=== PATIENT | male | born 1990 | race African-American/Black ===

== ENCOUNTER 2025-07-15 09:00 | Emergency (ER) | payer OTHER, SELFPAY ==
--- OUTSIDE RECORDS SUMMARY | 2018-03-25 19:00 | XMS_ITS | Continuity of Care Document ---
Author Organization [facility] Address [address] [place] [address] Phone Care Team Providers Care Plane Captain Name Role Phone Russ MOSER Rebekah Saravia Unavailable Unavailab le Allergies, Adverse Reactions, Alerts Substance Reaction Status Criticality No Known allergies Medications Medication Instructions Dosage Effective Dates (start - stop) Status Comments Topiramate 1 tablet qhs Once a day for 30 day(s) - No Longer Active Metronidazole 4 tablet x 1 for 1 days - No Longer Active Clindamycin Phosphate 1 application to affected area Twice a day for 30 day(s) No Longer Active Amitriptyline HCl 1 tablet Once a day for 30 day(s) No Longer Active Azithromycin 2 tablets as directed x 1 for 1 days - No Longer Active Macrobid 1 capsule with food every 12 hrs for 7 day(s) No Longer Active Ibuprofen 1 tablet with food or milk as needed Three times a day for 30 day(s) No Longer Active Amitriptyline HCl 1 tablet Once a day for 30 day(s) - No Longer Active Topiramate 1 tablet qhs Once a day for 30 day(s) No Longer Active Ibuprofen 1 tablet with food or milk as needed Three times a day for 30 day(s) - No Longer Active Clindamycin Phosphate 1 application to affected area Twice a day for 30 day(s) - No Longer Active Amitriptyline HCl 1 tablet Once a day for 30 day(s) - No Longer Active Topiramate 1 tablet qhs Once a day for 30 day(s) - No Longer Active Advance Directives Directive Yes / No Effective Date File Name No Information Encounters Encounter Description Practice Location Reason(s) For Visit Diagnoses Date Provider Providers Copied on Encounter [facility], [address] [place] [address], [id number], tel:[phone] [facility] No Information Feb-2 8201 8 Russ MOSER Rebekah Saravia. [address] [place] [address], [id number], . tel:[phone] [facility], [address] [place] [address], [id number], [place] tel:[phone] [facility] Axillary hidradenitis suppurativaPolyp of gallbladder Feb-0 7 8 No Information [facility], [address] [place] [address], [id number], tel:[phone] [facility] No Information 0 5201 8 Mostafania REDD Martell. [address] [place] [address], [id number], [place]. [facility], [address] [place] [address], [id number], tel:[phone] [facility] MDD (major depressive disorder), recurrent episode, moderate Apr-2 3-201 8 Lior العراقي. [address] [place] [address], [id number]. tel:[phone] [facility], [address] [place] [address], [id number], tel:[phone] [facility] SeizureMarijuana useOther chronic painEpigastric painScreeningNaus ea and vomitingUnspecifi ed abdominal pain Apr-0 201 8 No Information [facility], [address] [place], [place], [id number], [place] tel:[phone] [facility] Post traumatic stress disorder (PTSD) 8 iLor العراقي. [address] [place] [address], [id number]. tel:[phone] [facility], [address] [place], [place], [id number], [place] tel:[phone] [facility] Chronic migraine 8 Roscoe Kurtz. [address] [place] [address], [id number], [place]. Family History Family Member Type Diagnosis Age At Onset Father Problem (finding) Alive and well Mother Problem (finding) Alive and well Payers Payer name Insurance type Covered republican ID Authoriza tion(s) No Information Social History Type Description Quantity Date Captured Comments Sex Male Smoking Status No Information Chief Complaint And Reason For Visit No Information Reason For Referral Reason For Referral No Information History Of Present Illness Encounter Date Complaint History Of Prese nt Illness No Information Functional Status Date Functional Assessmen t No Information Instructions Date Instruction Additional Infor mation No Information Assessments Type Assessment Date No Information Patient Care Teams Name Effective Dates (start - stop) Status Members No Information
--- OUTSIDE RECORDS SUMMARY | 2018-04-14 12:31 | XMS_ITS | Continuity of Care Document ---
Author Organization [facility] Address [address] [place] [address] Phone Care Team Providers Care Master Machinist Name Role Phone Hospitalist, [facility] Unavailable Unavailable Advance Directives Directive Yes / No Effective Date File Name No Information Encounters Encounter Description Practice Location Reason(s) For Visit Diagnoses Date Provider Providers Copied on Encounter [facility], [address], [place], [place], [id number], [place] tel:[phone] [facility] Care Management No Information 8 [facility] [address] [place], [address], [place]. tel:[phone] Family History Family Member Type Diagnosis Age At Onset No Information Payers Payer name Insurance type Covered republican [...]
[2025-07-15] VITALS (20 sets, daily range): BP systolic 90–126; BP diastolic 59–80; PULSE 69–71; RESP 18; TEMP 36.9; O2SAT 98–100
--- NOTE | ~2025-07-15 | CT_ITS ---
EXAMINATION: CT cervical spine wo con COMPARISON: None HISTORY: fall TECHNIQUE: Axial images were obtained through the spine without IV contrast. Coronal, sagittal reconstruction images were obtained from the axial views. CT scan performed using dose optimization techniques including the following automated exposure control; adjustment of mA and/or kV; use of iterative reconstruction technique. Automatic exposure control was used to reduce radiation dose. Permanent radiation dose record is archived to PACS. FINDINGS: The vertebral heights are intact. No fracture or subluxation. The disc heights are intact. Soft tissues unremarkable. Impression: No acute abnormality. Reviewed, dictated and finalized at location P. Impression: No acute abnormality.
--- NOTE | ~2025-07-15 | CT_ITS ---
EXAMINATION: CT brain wo con DATE: 07/15/2025 10:38 INDICATION: Syncope. TECHNIQUE: Computed tomography (CT) of the head was performed without intravenous contrast. The mA was adjusted according to patient size. Iterative reconstruction technique was employed. The dose-length product was 681.00 mGy-cm. COMPARISON: None FINDINGS: There is no intracranial hemorrhage, acute infarction, or abnormal intracranial mass lesion. The ventricles are normal in size. The orbits are normal. There is mild mucosal thickening in the paranasal sinuses. The mastoid air cells are normal. IMPRESSION: 1. Normal brain. Reviewed, dictated and finalized at location E. IMPRESSION: 1. Normal brain.
--- NOTE | ~2025-07-15 | CT_ITS ---
EXAMINATION: CT thoracic spine wo con DATE: 07/15/2025 10:41 INDICATION: Fall. TECHNIQUE: Computed tomography (CT) of the thoracic spine was performed without intravenous contrast. Automated exposure control and iterative reconstruction technique were employed. The dose-length product was 490.35 mGy-cm. COMPARISON: None FINDINGS: There is 15 degrees levoscoliosis of upper thoracic spine. There is mild chronic anterior wedging of T3-T8 vertebral bodies. There are Schmorl's nodes at multiple levels. There is decreased disc height at many levels, severe at T3-T4, moderate at T4-T5, and severe at T5-T6, T6-T7, and T7-T8. There is multilevel facet joint osteoarthritis, severe on the left at T3-T4. There is mild left neural foraminal stenosis at T3-T4. There is mild central canal stenosis at T8-T9. IMPRESSION: 1. No fracture. 2. Severe thoracic spondylosis. 3. Thoracic levoscoliosis. Reviewed, dictated and finalized at location E.
--- NOTE | ~2025-07-15 | XR_ITS ---
EXAMINATION: XR chest 1V, 07/15/2025 10:40 CDT HISTORY: fall COMPARISON: No comparisons available. Technique: Single view. Findings: The lungs are clear, no effusion. No pneumothorax. Heart is normal size. Mediastinal and hilar contours are within normal limits. Bony thorax no acute abnormality. Impression: No acute cardiopulmonary abnormality. Reviewed, dictated and finalized at location P. Impression: No acute cardiopulmonary abnormality.
--- NOTE | 2025-07-15 09:28 | PC.NURSE ---
patient recently added red meat and pork to his diet and is unsure if that could be contributing to symptoms
--- NOTE | 2025-07-15 10:15 | ECG_ITS ---
Test Date: 2025-07-15 11:03:32 Measurements Intervals [place] Rate: 70 P: 23 CO: 132 QRS: 48 QRSD: 98 T: 48 QT: 356 QTc: 385 Interpretive Statements SINUS RHYTHM PEAKED T WAVES- CONSIDER HYPERKALEMIA ABNORMAL ECG No previous ECG available for comparison Electronically Signed On 07-15-2025 11:11:50 CDT by Alejandro Edouard D.O.
[2025-07-15 10:35] LABS: Hematocrit 39.5 % (42.0-52.0); Hemoglobin 12.3 g/dL (14.0-18.0); Immature Granulocyte Percent A 0.2 % (0-0.5); Lymphocytes Absolute Auto 1.25 K/mm3 (0.9-3.2); Mean Corpuscular HGB Conc 31.1 g/dl (32-36); Mean Corpuscular Hemoglobin 28.0 pg (26-34); Mean Corpuscular Volume 89.8 fl (80-100); Nucleated Red Blood Cells Absolute Auto 0.000 K/mm3 (0.0-0.012); Nucleated Red Blood Cells Perc 0.0 % (0.0-0.2); Platelet Count Result 224 k/mm3 (150-375); Red Blood Count 4.40 M/mm3 (4.6-6.20); White Blood Count 5.7 K/mm3 (4.5-10.0)
--- NOTE | 2025-07-15 10:43 | ED_ITS ---
HPI - General Adult General Chief complaint: Syncope Stated complaint: syncope, ?seizure Time Seen by Provider: 07/15/25 09:25 History of Present Illness HPI narrative: Peter Callejas is a 35-year-old male who presents to the EMS after syncopal episode. Patient reports having history syncope seizures in the past for which she has not had either 1 since 2018. He states that he was on medication for that these but does not remember what medication it was any has not taking any of those medications since 2017. He states that he has felt a little fatigued, generalized weak since about Friday. Today he was at work at [employer] and he started to feel lightheaded he took a rest, then continue to work and again started to feel lightheaded and ended up passing out and falling down on the floor. He states this loss but he remembered he is ready here. Patient is currently A&O x4 and complaining of pain to the his back of his neck and upper back. He also states that he has a severe headache denies 10. Related Data Allergies Allergy/AdvReac Type Severity Reaction Status Date / Time No Known Allergies Allergy Verified 07/15/25 09:31 Review of Systems 2 Review of Systems: All systems reviewed & are unremarkable except as noted in HPI and below Exam 2 Narrative: GENERAL: Well-appearing, well-nourished, and in no acute distress. HEAD: Normocephalic, atraumatic. EYES: PERRLA and EOMI. ENT: Nares clear, no rhinorrhea or epistaxis. Mucous membranes moist. Oropharynx without tonsillar hypertrophy exudate or other lesions. NECK: Supple. No adenopathy or masses. No carotid bruits or JVD CHEST: Clear to auscultation. No respiratory distress. No wheezes rales or rhonchi HEART: Regular rate and rhythm. No murmur heard. Normal peripheral pulses. ABDOMEN: Soft, nontender, nondistended, normal active bowel sounds. EXTREMITIES: Normal range of motion. No edema. SKIN: Warm, dry, no rash. NEURO: No focal deficits. Alert and oriented x3. PSYCH: Normal mood and affect. Course Vital Signs Vital signs: Vital Signs Temperature 36.9 C 07/15/25 09:10 Pulse Rate 71 07/15/25 09:10 Respiratory Rate 18 07/15/25 09:10 Blood Pressure 106/72 07/15/25 09:10 Pulse Oximetry 100 07/15/25 09:10 Oxygen Delivery Room Air 07/15/25 09:10 Temperature 36.9 C 07/15/25 09:10 Pulse Rate 69 07/15/25 13:59 Respiratory Rate 18 07/15/25 13:59 Blood Pressure 104/70 07/15/25 13:59 Pulse Oximetry 100 07/15/25 13:59 Oxygen Delivery Room Air 07/15/25 11:42 Medical Decision Making MDM Narrative Medical decision making narrative: 35-year-old male with reports of history of syncope and seizures but he has not had anything like that since 2018, who presents today via EMS from work after having a syncopal episode. He admits that he had nothing to eat today he and drink water any started to feel lightheaded tired while he was lifting boxes at work today and rested felt better he got up to do more work felt weak and tired again had and then passed out. Here he complains of having headache he complains of upper thoracic pain from the fall. He on exam patient is alert oriented x4 lung sounds are clear throughout abdomen is soft no pain with palpation he does have some thoracic spinal tenderness with palpation no lumbar spinal tenderness with palpation no acute neuro deficit noted on exam pupils equal reactive EOM intact no nystagmus noted. Concern for vasovagal, dehydration, seizure, cardiac arrhythmia, cardiac ischemia Plan to check labs, EKG, CT cervical spine, CT brain, CT thoracic spine, chest x-ray while treating him for migraine with IV fluids, Compazine, Benadryl and ketorolac EKG normal sinus rate 70, CBC no leukocytosis, hemodynamically stable with a hematocrit of 39.5, CMP unremarkable, lactate negative, troponin negative, lipase negative, UA positive for ketones, UDS positive for marijuana comment imaging is negative for acute finding he does have some thoracic spinal spondylosis. PERC score negative low likelihood for pulmonary embolism the [place] syncope Rule is negative which this patient at low risk for serious outcome for discharge Patient re-evaluated and patient states he is feeling much better his headache is gone ground having any pain I updated him and his dad on his lab and imaging results and plan for discharge home Patient is agreeable with this plan he will continue to hydrate and take the day off from work tomorrow. You also be with his dad He denies any new or worsening symptoms and is comfortable with being discharged home with this. Medical Records Medical records reviewed: Yes I reviewed the external patient's medical records. Vital Signs Vital Signs: Vital Signs Temperature 36.9 C 07/15/25 09:10 Pulse Rate 71 07/15/25 09:10 Respiratory Rate 18 07/15/25 09:10 Blood Pressure 106/72 07/15/25 09:10 Pulse Oximetry 100 07/15/25 09:10 Oxygen Delivery Room Air 07/15/25 09:10 Temperature 36.9 C 07/15/25 09:10 Pulse Rate 69 07/15/25 13:59 Respiratory Rate 18 07/15/25 13:59 Blood Pressure 104/70 07/15/25 13:59 Pulse Oximetry 100 07/15/25 13:59 Oxygen Delivery Room Air 07/15/25 11:42 Vitals reviewed Lab Data Lab results reviewed: Yes I reviewed the patient's lab results. 07/15/25 10:28 07/15/25 10:28 Labs: Lab Results 07/15/25 07/15/25 Range/Units 10:28 11:00 WBC 5.7 (4.5-10.0) K/mm3 RBC 4.40 L (4.6-6.20) M/mm3 Hgb 12.3 L (14.0-18.0) g/dL Hct 39.5 L (42.0-52.0) % MCV 89.8 (80-100) fl MCH 28.0 (26-34) pg MCHC 31.1 L (32-36) g/dl RDW 12.5 (11.5-14.5) % Plt Count 224 (150-375) k/mm3 MPV 9.4 (7.4-10.4) fl Immature Gran % (Auto) 0.2 (0-0.5) % Neut % (Auto) 70.2 (45.5-73.1) % Lymph % (Auto) 22.1 (18.3-44.2) % [place] % (Auto) 6.2 (2.6-8.5) % Eos % (Auto) 0.9 (0-4.4) % Baso % (Auto) 0.4 (0.2-1.2) % Lymph # (Auto) 1.25 (0.9-3.2) K/mm3 [place] # (Auto) 0.4 (0.1-0.6) K/mm3 Eos # (Auto) 0.1 (0-0.3) K/mm3 Baso # (Auto) 0.0 (0.0-0.1) K/mm3 Abs Immat Gran (auto) 0.01 (0.00-0.031) K/mm3 Absolute Neuts (auto) 4.0 (1.3-6.7) K/mm3 Absolute Nucleated RBC 0.000 (0.0-0.012) K/mm3 Nucleated RBC % 0.0 (0.0-0.2) % Sodium 136 L (137-145) mmol/L Potassium 4.7 (3.4-5.0) mmol/L Chloride 105 (98-107) mmol/L Carbon Dioxide 26 (22-30) mmol/L Anion Gap 5 (4-12) mmol/L BUN 12 (9-20) mg/dL Creatinine 1.00 (0.7-1.3) mg/dL Estim Creat Clear Calc 94 ml/min Estimated GFR > 60 (59 - ) Glucose 92 (65-110) mg/dL Lactic Acid 2.0 (0.7-2.0) mmol/L Calcium 8.9 (8.4-10.2) mg/dL Total Bilirubin 0.4 (0.2-1.3) mg/dL AST 29 (17-59) U/L ALT 22 (6-50) U/L Alkaline Phosphatase 54 (38-126) U/L Troponin I 0.034 (0.000-0.034) ng/mL Total Protein 7.0 (6.3-8.2) g/dL Albumin 4.1 (3.5-5.1) g/dL Lipase 88 (23-300) U/L Urine Color Yellow (Yellow) Urine Appearance Clear (Clear) Urine pH 6.0 (5.0-9.0) Ur Specific [place] 1.023 (1.001-1.035) Urine Protein Negative (Negative) mg/dL Urine Glucose (UA) Negative (Negative) mg/dL Urine Ketones Trace H (Negative) mg/dL Ur Blood (Man) Negative (Negative) Urine Nitrate Negative (Negative) Urine Bilirubin Negative (Negative) Urine Urobilinogen 1.0 (<2.0) mg/dL Leukocyte Esterase Rfl Negative (Negative) TYLER/UL Urine Opiates Screen Negative (Negative) Urine Methadone Screen Negative (Negative) Ur Barbiturates Screen Negative (Negative) Ur Phencyclidine Scrn Negative (Negative) Ur Amphetamine Screen Negative (Negative) U Benzodiazepines Scrn Negative (Negative) Urine Cocaine Screen Negative (Negative) U Cannabinoids Screen Positive A (Negative) Imaging Data Radiologist's impression: Impressions Head CT 07/15/25 10:40 IMPRESSION: 1. Normal brain. Cervical Spine CT 07/15/25 10:44 Impression: No acute abnormality. Chest X-Ray 07/15/25 10:50 Impression: No acute cardiopulmonary abnormality. Thoracic Spine CT 07/15/25 11:11 IMPRESSION: 1. No fracture. 2. Severe thoracic spondylosis. 3. Thoracic levoscoliosis. ECG Data EKG #1: ECG completion date: 07/15/25 ECG completion time: 11:03 Prior ECG tracings: not available for review Interpretation: Rate 70 [place] 132 QRSd 98 QT 356 QTc 385 --[place]-- P 23 QRS 48 T 48 SINUS RHYTHM PEAKED T WAVES- CONSIDER HYPERKALEMIA ABNORMAL ECG No previous ECG available for comparison Discharge Plan Discharge Clinical Impression: Dehydration, Spondylosis of thoracic spine Syncope Qualifiers: Syncope type: unspecified Qualified Code(s): R55 - Syncope and collapse Patient Disposition: Home Condition: Stable Instructions: Antibiotic Form Additional Instructions: Continue to make sure you are staying hydrated and eating before work. Please follow up with your PCP in 1 week to ensure you are improved Rest and stay home from work tomorrow. If you should develop any new or worsening symptoms return to the ER. Patient Language: Mozambican Follow-up/Referrals: UNKNOWN,DOCTOR [Primary Care Provider] Stand Alone Forms: Work/School Release IP Time of Disposition: 13:42
[2025-07-15 10:47] LABS: Alanine Aminotransferase 22 U/L (6-50); Albumin Level 4.1 g/dL (3.5-5.1); Alkaline Phosphatase 54 U/L (38-126); Anion Gap 5 mmol/L (4-12); Aspartate Amino Transferase 29 U/L (17-59); Bilirubin,Total 0.4 mg/dL (0.2-1.3); Blood Urea Nitrogen 12 mg/dL (9-20); Calcium 8.9 mg/dL (8.4-10.2); Carbon Dioxide 26 mmol/L (22-30); Chloride 105 mmol/L (98-107); Estimated CRCL calculation 94 ml/min; Estimated Glomerular Filt Rate > 60; Glucose 92 mg/dL (65-110); Potassium 4.7 mmol/L (3.4-5.0); Sodium 136 mmol/L (137-145); Total Protein 7.0 g/dL (6.3-8.2)
[2025-07-15 11:14] LABS: Add Urine Microscopic? NO; Appearance Urine Clear (Clear); Glucose Urine UA Negative (Negative); Leukocyte Esterase Ur Negative LEU/UL (Negative); Nitrate Urine Negative (Negative); Specific Grav Ur 1.023 (1.001-1.035)
[2025-07-15 11:24] LABS: Lipase 88 U/L (23-300)
[2025-07-15] MEDS: SODIUM CHLORIDE 0.9% IV 1,000 ML 999 ML IV CONT (11:33)
[2025-07-15] MEDS: KETOROLAC 30 MG/ML VIAL (*BKC) IV PUSH (11:36)
[2025-07-15] MEDS: PROCHLORPERAZINE EDISYLATE 10 MG/2 ML VIAL IV PUSH (11:37)
[2025-07-15 11:57] LABS: Troponin I 0.034 ng/mL (0.000-0.034)
[2025-07-15 11:58] LABS: Cannabinoid Screen Urine Positive (Negative)
--- OUTSIDE RECORDS SUMMARY | 2025-07-15 12:13 | XMS_ITS | Clinical Summary ---
Author Organization [facility] Address [address] [place] [address] Care Team Providers Care Drawer Liner Name Role Phone Ryne Sherman MD Primary Care Provider [phone]- [phone] Allergies No known active allergies Medications ibuprofen (ADVIL,MOTRIN) 800 mg tabletIndicatio ns:Anti-inflamm atory,Fever,Ty n Take 1 tablet (800 mg total) by mouth 3 (three) times a day 21 tablet 1 Active acetaminophen (TYLENOL) 500 mg tablet Take 1-2 tablets (500-1,000 mg total) by mouth every 6 (six) hours as needed for pain, headaches or fever 30 tablet 1 Active ondansetron (ZOFRAN) 4 mg tablet Take 1 tablet (4 mg total) by mouth every 6 (six) hours 12 tablet 1 Active oxyCODONE-aceta minophen (PERCOCET) 5-325 mg per tabletIndicatio ns:Pain Take 1 tablet by mouth every 4 (four) hours as needed for pain 15 tablet 4 Active cyclobenzaprine (FLEXERIL) 5 mg tablet Take 1 tablet (5 mg total) by mouth 3 (three) times a day as needed for muscle spasms 15 tablet 4 Active Active Problems No known active problems Encounters Date Type Department Care Team Description 05/23/2025 1:45 PM CDT Lab [facility] Lab [address] [place] [address] Screening examination for STI 05/22/2025 Results Follow-Up [facility] [place] [address] [place] [address] Paz Davies NP N. gonorrhoeae/C. trachomatis Amplification Urine, Trichomonas vaginalis PCR Urine, Hepatitis panel, acute Blood, Additional followed-up results: 4 05/21/2025 9:46 PM CDT - 05/21/2025 11:59 [place] [address] Screening examination for STI Discharge Disposition: Discharge to home or self care 05/21/2025 5:15 PM CDT Office Visit [facility] [place] [address] [place] [id number] Paz Davies NP Screening examination for STI (Primary Dx) from Last 3 Months Surgical History Surgery Date Site/Laterality Comments HERNIA REPAIR Medical History Medical History Date Comments Seizures (HCC) Social History Tobacco Use Types Packs/Day Years Used Date Smoking Tobacco: Former Cigarettes Smokeless Tobacco: Never Tobacco Cessation:Counseling Given: Not Answered Alcohol Use Standard Drinks/Week Comments Yes 14 (1 standard drink = 0.6 oz pu re alcohol) 2/ day Personal Safety Answer Date Recorded Have you ever been in or are you currently in a harmful physical or emotional relationship or is someone making you feel afraid or unsafe? Denies 03/14/2024 Sex and Gender Information Value Date Recorded Sex Assigned at Not on file Legal Sex Male 7:27 PM CDT Gender Identity Not on file Sexual Orientation Not on file Obstetrics History Last Filed Vital Signs Vital Sign Reading Time Taken Comments Blood Pressure 128/68 05/21/2025 5:07 PM CDT Pulse 84 05/21/2025 5:07 PM CDT Temperature 37 C (98.6 F) 05/21/2025 5:07 PM CDT Respiratory Rate 20 05/21/2025 5:07 PM CDT Oxygen Saturation 99% 05/21/2025 5:07 PM CDT Inhaled Oxygen Concentration - - Weight 60.8 kg (134 lb) 05/21/2025 5:07 PM CDT Height 180.3 cm (5' 11) 03/14/2024 10:53 AM CDT Body Mass Index 18.69 03/14/2024 10:53 AM CDT Plan of Treatment Health Maintenance Due Date Last Done Comments Depression Screening 1990 DTaP/Tdap/Td Vaccine (1 - Tdap) 2001 Varicella Vaccines (1 of 2 - 13+ 2-dose series) 2003 Hepatitis B Screening 2008 Regular Well Visit/Exam 18-64 2008 HPV Vaccines (1 - 3-dose SCD M series) 2017 Influenza Vaccine (#1) 2025 Hepatitis C Screening Completed 05/23/2025 Pneumococcal vaccine <65 Aged Out No longer eligible based on patient's age to complete this topic Procedures Procedure Name Priority Date/Time Associated Diagnosis Comments HIV 1/2 ANTIBODY PLUS P24 ANTIGEN Routine 05/23/2025 1:52 PM CDT Screening examination for STI HSV 2 ANTIBODY, IGG Routine 05/23/2025 1 :52 PM CDT Screening examination for STI HSV 1 ANTIBODY, IGG Routine 05/23/2025 1 :52 PM CDT Screening examination for STI HEPATITIS PANEL, ACUTE Routine 1:52 PM CDT Screening examination for STI RPR Routine 05/23/2025 1:52 PM CDT Screening examination for STI TRICHOMONAS VAGINALIS PCR Routine 05/21/2025 9:56 PM CDT Screening examination for STI N. GONORRHOEAE/C. TRACHOMATIS AMPLIFICATION Routine 05/21/2025 9:56 PM CDT Screening examination for STI from Last 3 Months Results * HIV 1/2 Antibody plus p24 Antigen Blood (05/23/2025 1:52 PM CDT) HIV 1/2 ab + p24 ag Nonreactive Nonreactive Comment:Nonreactive for HIV- 1 antigen and HIV-1/HIV-2 antibodies. No laboratory evidence of HIV infection. If acute HIV infection is suspected, consider testing for HIV-1 RNA. Current interpretive data was last revised on 22. Blood 05/23/2025 1:52 PM CDT 05/23/2025 2:36 PM CDT Paz Davies NP LAB MICROBIOLOGY - GENERAL O RDERABLES Final Result Performing Organization Address [facility] Co de Phone Number [facility] [employer] [place] [address] * Hepatitis panel, acute Blood (05/23/2025 1:52 PM CDT) Hep A IgM Nonreactive Nonreactive Comment: Interpretive Data: If Hep A IgM Ab is reported as Equivocal, a new sample should be drawn in two weeks for testing. Current interpretive data was last revised on 19. Hep B core IgM Nonreactive Nonreactive [facility] Comment: Interpretive Data If HepB Core IgM Ab is reported as Equivocal, a new sample should be drawn in two weeks for testing. Current interpretive data was last revised on 19. Hep C Ab Nonreactive Nonreactive [facility] Comment: Antibodies to HCV not detected. Does NOT exclude the possibility of recent exposure to HCV. Current interpretive data was last revised on 22 Interpretive Data Nonreactive: Antibodies to HCV not detected. Does NOT exclude the possibility of recent exposure to HCV. Equivocal: Equivocal for HCV antibodies. Supplemental molecular testing will be automatically performed to determine infection status in accordance with current CDC screening recommendations. Reactive: Positive for HCV antibodies. This may represent current or past HCV infection. Supplemental molecular testing will be automatically performed to determine current infection status in accordance with current CDC screening recommendations. Interpretive data was last revised on 2019. HepBsAg Nonreactive Nonreactive [facility] Blood 05/23/2025 1:52 PM CDT 05/23/2025 2:36 PM CDT Paz Davies NP LAB MICROBIOLOGY - GENERAL O RDERABLES Final Result Performing Organization Address City/[facility] Co de Phone Number [facility] [place] [employer] [place] [address] * HSV 2 IgG Antibody Blood (05/23/2025 1:52 PM CDT) HSV 2 IgG Nonreactive Nonreactive Comment: Interpretive Data 1. Nonreactive: No detectable IgG antibody to HSV-2. 2. Equivocal: Presence or absence of detectable antibodies to HSV-2 cannot be determined and the test should be repeated. 3. Reactive: Indicates presence of detectable IgG antibody to HSV-2. Current interpretive data was last revised on 2023. Testing performed by: [facility], [address] [place]., [address] Blood 05/23/2025 1:52 PM CDT 05/23/2025 6:46 PM CDT Paz Davies NP LAB MICROBIOLOGY - GENERAL O RDERABLES Final Result Performing Organization Address [facility] Co de Phone Number [facility] [place] [place] [address] * HSV 1 IgG Antibody Blood (05/23/2025 1:52 PM CDT) HSV 1 IgG Nonreactive Nonreactive Comment: Interpretive Data 1. Nonreactive: No detectable IgG antibody to HSV-1. 2. Equivocal: Presence or absence of detectable antibodies to HSV-1 cannot be determined and the test should be repeated. 3. Reactive: Indicates presence of detectable IgG antibody to HSV-1. Current interpretive data was last revised on 2016. Testing performed by: [facility], [address] [place]., [address] Blood 05/23/2025 1:52 PM CDT 05/23/2025 6:46 PM CDT Paz Davies NP LAB MICROBIOLOGY - GENERAL O RDERABLES Final Result Performing Organization Address City/[facility]/ZIP Co de Phone Number [address] [place] [address] * RPR Blood (05/23/2025 1:52 PM CDT) RPR Nonreactive Nonreactive Comment:Testing performed by : [facility], [address] [facility], [place]., [address] Blood 05/23/2025 1:52 PM CDT 05/23/2025 6:46 PM CDT Paz Davies NP LAB MICROBIOLOGY - GENERAL O RDERABLES Final Result Performing Organization Address City/[facility] Co de Phone Number [facility] Department [place] [address] * N. gonorrhoeae/C. trachomatis Amplification Urine (05/21/2025 9:56 PM CDT) [facility] C. trachomatis Not Detected [facility] N. gonorrhoeae Not Detected [facility] Comment: Interpretive Data This assay detects Chlamydia trachomatis and Neisseria gonorrhoeae by nucleic acid amplification testing (NAAT). This assay has been cleared by the [place] Food and Drug administration. The performance characteristics of this test have been verified by the [facility] Molecular Infectious Disease laboratory. The performance characteristics of this test have not been evaluated in individuals less than 14 years of age. Current Interpretive Data was last revised on 2023. Urine 05/21/2025 9:56 PM CDT 05/21/2025 10:05 PM CDT Paz Davies NP LAB MICROBIOLOGY - GENERAL O RDERABLES Final Result Performing Organization Address City/[facility]/ZIP Co de Phone Number [facility] [address] [facility] Department [place] [address] [facility] * Trichomonas vaginalis PCR Urine (05/21/2025 9:56 PM CDT) [facility] Trichomonas DNA Not Detected [facility] Comment: Interpretive Data This assay detects Trichomonas vaginalis by nucleic acid amplification testing (NAAT). This assay has been cleared by the [place] Food and Drug administration. The performance characteristics of this test have been verified by the [facility] Molecular Infectious Disease laboratory. The performance of this test has not been evaluated in individuals less than 18 years of age. Current Interpretive Data was last revised on 2023. Urine 05/21/2025 9:56 PM CDT 05/21/2025 10:05 PM CDT us Paz Davies NP LAB MICROBIOLOGY - GENERAL O RDERABLES Final Result [facility] [address] [facility] Department [place] [address] [facility] from Last 3 Months Insurance [facility] [place] Care Teams Drawer Liner Relationship Specialty Start Date End Date Ryne Sherman MD [address] [place] [address] PCP - General 08/02/21
--- OUTSIDE RECORDS SUMMARY | 2025-07-15 12:13 | XMS_ITS | Encounter Summary ---
Author Organization [facility] Address [address] [place] [address] Care Team Providers Care Line Producer Name Role Phone Ryne Sherman MD Primary Care Provider +1- [phone] Encounter Details Date Type Department Care Team (Late st Contact Info) Description 05/22/2025 Results Follow-Up [facility] [place] [address] [place] [phone] Paz Davies NP [address] [place] [address] N. gonorrhoeae/C. trachomatis Amplification Urine, Trichomonas vaginalis PCR Urine, Hepatitis panel, acute Blood, Additional followed-up results: 4 Social History Tobacco Use Types Packs/Day Years Used Date Smoking Tobacco: Former Cigarettes Smokeless Tobacco: Never Alcohol Use Standard Drinks/Week Comments Yes 14 [...] on file Sexual Orientation Not on file documented as of this encounter Miscellaneous Notes * Result Encounter Note - Paz Davies NP - 05/22/2025 6:31 PM CDT Please inform pt of neg G/C/T results. Follow up with PCP for persisting symptoms. documented in this encounter Plan of Treatment Not on file documented as of this encounter Visit Diagnoses Not on filedocumented in this encounter Care Teams Line Producer Relationship Specialty Start Date End Date Ryne Sherman MD [address] [facility] [address] PCP - General 08/02/21 documented as of this encounter
== END 2025-07-15 14:00 | disposition home or self-care (01) ==
PROVIDERS: Emergency Provider Nurse Practitioner Family
DX: R55 Syncope and collapse (principal); E86.0 Dehydration; M47.816 Spondylosis without myelopathy or radiculopathy, lumbar region; R94.31 Abnormal electrocardiogram [ECG] [EKG]
CPT/HCPCS: 36415; 70450; 71045; 72125; 72128; 80053; 80307; 81003; 83605; 83690; 84484; 85025; 93005; 96361; 96374; 96375; 99284; J0780; J1200; J1885; J7030